=== PATIENT | female | born 1950 | race Caucasian/White ===

== ENCOUNTER 2019-12-03 10:21 | Day surgery (SDC) | payer MEDICARE, BC ==
[~2019-12-03 10:21] MED LIST: Cefuroxime 10 MG/ML SYRINGE EYELF SCH; Lidocaine 1% PF 2 ML SDV INJECT SCH; Pilocarpine 4% Ophth Soln 15 ML Bot EYELF SCH
[2019-12-03] MEDS: Polymyxin B/Trimethoprim 10 ML Bottle EYELF SCH ×3 (10:58→12:53)
[2019-12-03] MEDS: Brimonidine 0.2% Ophth Soln 5 ML Bottle EYELF SCH ×3 (11:03→12:53)
[2019-12-03] MEDS: Phenylephrine 2.5% Ophth Soln 2 ML Bot EYELF SCH ×5 (11:08→12:36)
[2019-12-03] MEDS: Tropicamide 1% Ophth Soln 15 ML Bottle EYELF SCH ×4 (11:13→12:10)
--- NOTE | 2019-12-03 11:50 | PCM.PREANE ---
Preanesthetic Assessment - Procedure Proposed Procedure: cataract left - Anesthesia/Transfusion/Family Hx Anesthesia History: Prior Anesthesia Without Reaction Transfusion History: No Prior Transfusion(s) - Review of Systems General: No Symptoms Pulmonary: No Symptoms Cardiovascular: No Symptoms Gastrointestinal: No Symptoms Neurological: No Symptoms Other: Reports: None, Neck Pain - Physical Assessment NPO Status Date: 12/03/19 NPO Status Time: 03:30 (water) Vital Signs: 110/60 67 98% 16 97 Height: 5 ft 2 in Weight: 54.431 kg ASA Class: 2 Mental Status: Alert & Oriented x3 Airway Class: Mallampati = 1 Dentition: Reports: Normal Dentition Thyro-Mental Finger Breadths: 3 Mouth Opening Finger Breadths: 3 ROM/Head Extension: Full Lungs: Clear to Auscultation, Normal Respiratory Effort Cardiovascular: Regular Rate, Regular Rhythm - Allergies Allergies/Adverse Reactions: Allergies Allergy/AdvReac Type Severity Reaction Status Date / Time latex Allergy Rash Verified 12/02/19 13:55 - Blood Blood Available: No - Acknowledgements Anesthesia Type Planned: MAC Pt an Appropriate Candidate for the Planned Anesthesia: Yes Alternatives and Risks of Anesthesia Discussed w Pt/Guardian: Yes Pt/Guardian Understands and Agrees with Anesthesia Plan: Yes PreAnesthesia Questionnaire Cardiovascular History: Reports: High Cholesterol, Hypertension Respiratory History: Reports: None - SUBSTANCE USE Smoking Status *Q: Former Smoker Tobacco Use Within Last Twelve Months: No Second Hand Smoke Exposure: No Recreational Drug Use History: No - HOME MEDS Home Medications: Home Meds Calcium Carbonate [Calcium] 500 mg PO DAILY 12/02/19 [History] Cholecalciferol (Vitamin D3) [Vitamin D3] 400 unit PO DAILY 12/02/19 [History] Echinacea Purpurea Extract [Echinacea] 125 mg PO DAILY 12/02/19 [History] Garlic [Odorless Garlic] 300 mg PO DAILY 12/02/19 [History] Glucosamine [Glucosamine Sulfate] 500 mg PO DAILY 12/02/19 [History] Lactobacillus Acidophilus [Probiotic] 1 cap PO DAILY 12/02/19 [History] Propylene Glycol/Peg 400 [Systane 0.3-0.4% Eye Drops] 1 drop EYEBOTH Q4H PRN [History] Turmeric/Turmeric Root Extract [Turmeric] 500 mg PO DAILY 12/02/19 [History] Vitc/E/Zn/Copper/Lutein/Zeaxan [Icaps Areds2 Softgel] 1 cap PO DAILY 12/02/19 [ History] cycloSPORINE [Restasis] 1 drop EYEBOTH BID 12/02/19 [History] - CURRENT (IN HOUSE) MEDS Current Meds: Current Medications Brimonidine Tartrate (Alphagan 0.2% Ophth Soln) 0 ml EYELF ASDIRECTED ERON Stop: 12/03/19 23:00 Last Admin: 12/03/19 11:03 Dose: 1 drop Cefuroxime Sodium (Zinacef) 0 mg EYELF ASDIRECTED ERON Stop: 12/03/19 23:00 Lidocaine HCl (Xylocaine-Mpf 1%) 0 ml INJECT ASDIRECTED ERON Stop: 12/03/19 23:00 Phenylephrine HCl (Alessandro-Synephrine 2.5% Ophth Soln) 0 ml EYELF ASDIRECTED ERON Stop: 12/03/19 23:00 Last Admin: 12/03/19 11:27 Dose: 1 drop Pilocarpine HCl (Pilocar 4% Ophth Soln) 0 ml EYELF ASDIRECTED ERON Stop: 12/03/19 23:00 Polymyxin/Trimethoprim Sulfate (Polytrim Ophth Soln) 0 ml EYELF ASDIRECTED ERON Stop: 12/03/19 23:00 Last Admin: 12/03/19 11:40 Dose: 1 drop Tetracaine HCl (Tetracaine 0.5% Steri-Unit Viri) 0 ml EYELF ASDIRECTED ERON Stop: 12/03/19 23:00 Tropicamide (Mydriacyl 1% Ophth Soln) 0 ml EYELF ASDIRECTED ERON Stop: 12/03/19 23:00 Last Admin: 12/03/19 11:32 Dose: 1 drop
[2019-12-03] MEDS: Tetracaine HCl/PF 0.5% 4 ML Bottle EYELF SCH ×2 (12:20→12:43)
--- NOTE | 2019-12-03 13:37 | PCM48HPAN ---
Post Anesthesia Note - EVALUATION WITHIN 48HRS OF ANESTHETIC Vital Signs in Normal Range: Yes Patient Participated in Evaluation: Yes Respiratory Function Stable: Yes Airway Patent: Yes Cardiovascular Function Stable: Yes Hydration Status Stable: Yes Pain Control Satisfactory: Yes Nausea and Vomiting Control Satisfactory: Yes Mental Status Recovered: Yes Vital Signs: Last Vital Signs Temp 36.3 C 12/03/19 12:57 Pulse 70 12/03/19 12:57 Resp 16 12/03/19 12:57 BP 104/65 12/03/19 12:57 Pulse Ox 99 12/03/19 12:57
== END 2019-12-03 13:05 | disposition home or self-care (01) ==
LOC: JD.SDS 10:21
PROVIDERS: ATTEND Ophthalmology
DX: H25.813 Combined forms of age-related cataract, bilateral (principal); H35.363 Drusen (degenerative) of macula, bilateral; H35.3131 Nonexudative age-related macular degeneration, bilateral, early dry stage; H16.103 Unspecified superficial keratitis, bilateral; H16.223 Keratoconjunctivitis sicca, not specified as Sjogren's, bilateral; H02.834 Dermatochalasis of left upper eyelid; H02.831 Dermatochalasis of right upper eyelid; E78.00 Pure hypercholesterolemia, unspecified; Z91.040 Latex allergy status
CPT/HCPCS: 66984; J0697; J2001; C1780

== ENCOUNTER 2019-12-29 07:08 | Day surgery (SDC) | payer MEDICARE, BC ==
[2019-12-29] MEDS: Polymyxin B/Trimethoprim 10 ML Bottle EYERT SCH ×4 (07:24→08:49)
[2019-12-29] MEDS: Brimonidine 0.2% Ophth Soln 5 ML Bottle EYERT SCH ×4 (07:28→08:49)
[2019-12-29] MEDS: Phenylephrine 2.5% Ophth Soln 2 ML Bot EYERT SCH ×6 (07:34→08:22)
[2019-12-29] MEDS: Tropicamide 1% Ophth Soln 15 ML Bottle EYERT SCH ×4 (07:38→08:03)
--- NOTE | 2019-12-29 07:44 | PCM.PREANE ---
Preanesthetic Assessment - Anesthesia/Transfusion/Family Hx Anesthesia History: Prior Anesthesia Without Reaction Family History of Anesthesia Reaction: No Transfusion History: No Prior Transfusion(s) Intubation History: Unknown - Review of Systems General: No Symptoms Pulmonary: No Symptoms (quit smoking 2006) Cardiovascular: No Symptoms (elevated cholesterol) Gastrointestinal: No Symptoms Neurological: No Symptoms, Headache Other: Reports: None - Physical Assessment NPO Status Date: 12/28/19 NPO Status Time: 23:59 Vital Signs: HR: 66 BP: 120/67 Resp: 16 Temp: 97.1 Sat: 97% Height: 1.57 m Weight: 54.431 kg ASA Class: 2 Mental Status: Alert & Oriented x3 Airway Class: Mallampati = 2 Dentition: Reports: Normal Dentition, Caries Thyro-Mental Finger Breadths: 3 Mouth Opening Finger Breadths: 3 ROM/Head Extension: Full Lungs: Clear to Auscultation, Normal Respiratory Effort Cardiovascular: Regular Rate, Regular Rhythm, No Murmurs - Allergies Allergies/Adverse Reactions: Allergies Allergy/AdvReac Type Severity Reaction Status Date / Time latex Allergy Rash Verified 12/28/19 11:39 - Anesthesia Plan Pre-Op Medication Ordered: None - Acknowledgements Anesthesia Type Planned: MAC Pt an Appropriate Candidate for the Planned Anesthesia: Yes Alternatives and Risks of Anesthesia Discussed w Pt/Guardian: Yes Pt/Guardian Understands and Agrees with Anesthesia Plan: Yes PreAnesthesia Questionnaire Cardiovascular History: Reports: High Cholesterol, Hypertension Respiratory History: Reports: None - HOME MEDS Home Medications: Home Meds Calcium Carbonate [Calcium] 500 mg PO DAILY 12/02/19 [History] Cholecalciferol (Vitamin D3) [Vitamin D3] 400 unit PO DAILY 12/02/19 [History] Echinacea Purpurea Extract [Echinacea] 125 mg PO DAILY 12/02/19 [History] Garlic [Odorless Garlic] 300 mg PO DAILY 12/02/19 [History] Glucosamine [Glucosamine Sulfate] 500 mg PO DAILY 12/02/19 [History] Lactobacillus Acidophilus [Probiotic] 1 cap PO DAILY 12/02/19 [History] Propylene Glycol/Peg 400 [Systane 0.3-0.4% Eye Drops] 1 drop EYEBOTH Q4H PRN [History] Turmeric/Turmeric Root Extract [Turmeric] 500 mg PO DAILY 12/02/19 [History] Vitc/E/Zn/Copper/Lutein/Zeaxan [Icaps Areds2 Softgel] 1 cap PO DAILY 12/02/19 [ History] cycloSPORINE [Restasis] 1 drop EYEBOTH BID 12/02/19 [History] - CURRENT (IN HOUSE) MEDS Current Meds: Current Medications Brimonidine Tartrate (Alphagan 0.2% Ophth Soln) 0 ml EYERT ASDIRECTED ERON Stop: 12/29/19 18:00 Last Admin: 12/29/19 07:28 Dose: 1 drop Cefuroxime Sodium (Zinacef) 0 mg EYERT ASDIRECTED ERON Stop: 12/29/19 18:00 Lidocaine HCl (Xylocaine-Mpf 1%) 0 ml INJECT ASDIRECTED ERON Stop: 12/29/19 18:00 Phenylephrine HCl (Alessandro-Synephrine 2.5% Ophth Soln) 0 ml EYERT ASDIRECTED ERON Stop: 12/29/19 18:00 Last Admin: 12/29/19 07:34 Dose: 1 drop Pilocarpine HCl (Pilocar 4% Ophth Soln) 0 ml EYERT ASDIRECTED ERNO Stop: 12/29/19 18:00 Polymyxin/Trimethoprim Sulfate (Polytrim Ophth Soln) 0 ml EYERT ASDIRECTED ERON Stop: 12/29/19 18:00 Last Admin: 12/29/19 07:24 Dose: 1 drop Tetracaine HCl (Tetracaine 0.5% Steri-Unit Viri) 0 ml EYEBOTH ASDIRECTED ERON Stop: 12/29/19 18:00 Tropicamide (Mydriacyl 1% Ophth Soln) 0 ml EYERT ASDIRECTED ERON Stop: 12/29/19 18:00 Last Admin: 12/29/19 07:38 Dose: 1 drop
[2019-12-29] MEDS: Tetracaine HCl/PF 0.5% 4 ML Bottle EYEBOTH SCH ×3 (07:47→08:35)
[2019-12-29] MEDS: Lidocaine 1% PF 2 ML SDV INJECT SCH ×2 (07:47→08:35)
[2019-12-29] MEDS: Pilocarpine 4% Ophth Soln 15 ML Bot EYERT SCH ×2 (07:48→08:49)
[2019-12-29] MEDS: Cefuroxime 10 MG/ML SYRINGE EYERT SCH ×2 (07:48→08:48)
--- NOTE | 2019-12-29 08:50 | PCM48HPAN ---
Post Anesthesia Note - EVALUATION WITHIN 48HRS OF ANESTHETIC Vital Signs in Normal Range: Yes Patient Participated in Evaluation: Yes Respiratory Function Stable: Yes Airway Patent: Yes Cardiovascular Function Stable: Yes Hydration Status Stable: Yes Pain Control Satisfactory: Yes Nausea and Vomiting Control Satisfactory: Yes Mental Status Recovered: Yes Vital Signs: Last Vital Signs Temp 36.2 C 12/29/19 07:15 Pulse 66 12/29/19 07:15 Resp 16 12/29/19 07:15 BP 120/67 12/29/19 07:15 Pulse Ox 97 12/29/19 07:15
== END 2019-12-29 08:59 | disposition home or self-care (01) ==
LOC: JD.SDS 07:08
PROVIDERS: ATTEND Ophthalmology
DX: H25.811 Combined forms of age-related cataract, right eye (principal); E78.00 Pure hypercholesterolemia, unspecified; H02.831 Dermatochalasis of right upper eyelid; H02.834 Dermatochalasis of left upper eyelid; H35.3131 Nonexudative age-related macular degeneration, bilateral, early dry stage; H35.363 Drusen (degenerative) of macula, bilateral; H40.1334 Pigmentary glaucoma, bilateral, indeterminate stage; Z91.040 Latex allergy status; Z96.1 Presence of intraocular lens; Z98.42 Cataract extraction status, left eye
CPT/HCPCS: 66984; C1780; J0697; J2001

== ENCOUNTER 2021-04-06 07:08 | Day surgery (SDC) | payer MEDICARE, BC ==
[~2021-04-06 07:08] MED LIST changes: +Acetaminophen 325 MG Tab PO SCH; -Cefuroxime 10 MG/ML SYRINGE EYELF SCH; +Gabapentin 300 MG Cap PO SCH; +Lactated Ringers 1,000 ML IV SCH; +Lidocaine 1% 4 ML ONE; -Lidocaine 1% PF 2 ML SDV INJECT SCH; +Lidocaine 1%/Sod Bicarbonate in NS 8.4% 1 ML Syringe IDERM PRN; -Pilocarpine 4% Ophth Soln 15 ML Bot EYELF SCH; +Propofol 200 MG/20 ML SDV ONE; +Rocuronium 50 MG/5 ML Vial ONE; +Sodium Chloride 0.9% 10 ML Syringe FLUSH PRN; +ceFAZolin 1 GM Vial ONE; +fentaNYL 250 MCG/5 ML SDV ONE
[2021-04-06] MEDS ORDERED: Lidocaine 1% with EPINEPHrine 1:100,000 10 ML MDV ONE (07:17)
[2021-04-06] MEDS ORDERED: Bupivacaine 0.5%/EPINEPHrine 1:200,000 50 ML MDV ONE (07:17)
--- NOTE | 2021-04-06 07:22 | PCM.PREANE ---
Preanesthetic Assessment - Anesthesia/Transfusion/Family Hx Anesthesia History: Prior Anesthesia Without Reaction Family History of Anesthesia Reaction: No Transfusion History: No Prior Transfusion(s) Intubation History: Unknown - Review of Systems General: No Symptoms Pulmonary: No Symptoms Cardiovascular: No Symptoms Gastrointestinal: No Symptoms Neurological: No Symptoms Other: Reports: None - Physical Assessment NPO Status Date: 04/05/21 NPO Status Time: 23:30 ASA Class: 2 Mental Status: Alert & Oriented x3 Airway Class: Mallampati = 1 Dentition: Reports: Normal Dentition Thyro-Mental Finger Breadths: 3 Mouth Opening Finger Breadths: 3 ROM/Head Extension: Full Lungs: Clear to Auscultation, Normal Respiratory Effort Cardiovascular: Regular Rate, Regular Rhythm - Allergies Allergies/Adverse Reactions: Allergies Allergy/AdvReac Type Severity Reaction Status Date / Time No Known Allergies Allergy Verified 04/05/21 13:04 - Acknowledgements Anesthesia Type Planned: General Anesthesia Pt an Appropriate Candidate for the Planned Anesthesia: Yes Alternatives and Risks of Anesthesia Discussed w Pt/Guardian: Yes Pt/Guardian Understands and Agrees with Anesthesia Plan: Yes PreAnesthesia Questionnaire HEENT History: Reports: Impaired Vision Cardiovascular History: Reports: High Cholesterol, Hypertension Respiratory History: Reports: None Gastrointestinal History: Reports: None Genitourinary History: Reports: None 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 Other Musculoskeletal History: broken wrist, no surgery indicated Neurological History: Reports: None Psychiatric History: Reports: None Endocrine/Metabolic History: Reports: None Hematologic History: Reports: None Immunologic History: Reports: None Oncologic (Cancer) History: Reports: None Dermatologic History: Reports: None - Past Surgical History Head Surgeries/Procedures: Reports: None HEENT Surgical History: Reports: Cataract Surgery Cardiovascular Surgical History: Reports: None Respiratory Surgical History: Reports: None GI Surgical History: Reports: Colonoscopy Female Surgical History: Reports: Tubal Ligation Male Surgical History: Reports: None Endocrine Surgical History: Reports: None Neurological Surgical History: Reports: None Musculoskeletal Surgical History: Reports: None Oncologic Surgical History: Reports: None Dermatological Surgical History: Reports: None - SUBSTANCE USE Tobacco Use Status *Q: Former Tobacco User Recreational Drug Use History: No - HOME MEDS Home Medications: Home Meds Calcium Carbonate [Calcium] 500 mg PO DAILY 12/02/19 [History] Cholecalciferol (Vitamin D3) [Vitamin D3] 400 unit PO DAILY 12/02/19 [History] Echinacea Purpurea Extract [Echinacea] 125 mg PO DAILY 12/02/19 [History] Garlic [Odorless Garlic] 300 mg PO DAILY 12/02/19 [History] Glucosamine [Glucosamine Sulfate] 500 mg PO DAILY 12/02/19 [History] Lactobacillus Acidophilus [Probiotic] 1 cap PO DAILY 12/02/19 [History] Turmeric/Turmeric Root Extract [Turmeric] 500 mg PO DAILY 12/02/19 [History] cycloSPORINE [Restasis] 1 drop EYEBOTH BID 12/02/19 [History] C/Sourcherry/Celery/Grape Seed [Tart Vega] 1 cap PO DAILY 04/05/21 [History] Clioquinol/Hydrocortisone [Ala-Taryn 3-0.5%] 1 dose TOP BID PRN 04/05/21 [History] Cranberry Fruit Extract [Cranberry] 200 mg PO DAILY 04/05/21 [History] Fish Oil/[place]-3 Fatty Acids [Fish Oil 1,000 MG] 1 gm PO DAILY 04/05/21 [History] - CURRENT (IN HOUSE) MEDS Current Meds: Current Medications Acetaminophen (Acetaminophen 325 Mg Tab) 975 mg PO ONETIME ERON Stop: 04/06/21 18:00 Gabapentin (Gabapentin 300 Mg Cap) 300 mg PO ONETIME ERON Stop: 04/06/21 18:00 Lactated Ringer's (Ringers, Lactated) 1,000 mls @ 125 mls/hr IV ASDIRECTED ERON Stop: 04/06/21 23:00 Lidocaine/Sodium Bicarbonate (Lidocaine 1%/Sod Bicarbonate In Ns 8.4% 1 Ml Syringe) 0.25 ml IDERM ONETIME PRN PRN Reason: Prior to IV Start Stop: 04/06/21 23:00 Sodium Chloride (Sodium Chloride 0.9% 10 Ml Syringe) 10 ml FLUSH ASDIRECTED PRN PRN Reason: Keep Vein Open Stop: 04/06/21 18:00 Discontinued Medications Cefazolin Sodium (Cefazolin 1 Gm Vial) Confirm Administered Dose 2 gm .ROUTE .STK-MED ONE Stop: 04/06/21 06:58 Fentanyl (Fentanyl 250 Mcg/5 Ml Sdv) Confirm Administered Dose 250 mcg .ROUTE .STK-MED ONE Stop: 04/06/21 06:59 Lidocaine HCl (Xylocaine-Mpf 1%) Confirm Administered Dose 4 mls @ as directed .ROUTE .STK-MED ONE Stop: 04/06/21 06:58 Propofol (Propofol 200 Mg/20 Ml Sdv) Confirm Administered Dose 200 mg .ROUTE .STK-MED ONE Stop: 04/06/21 06:58 Rocuronium Jackson (Rocuronium 50 Mg/5 Ml Vial) Confirm Administered Dose 50 mg .ROUTE .STK-MED ONE Stop: 04/06/21 06:58
[2021-04-06] MEDS ORDERED: HYDROmorphone 0.5 MG/0.5 ML Syringe ONE (08:29)
[2021-04-06] MEDS ORDERED: Ondansetron 4 MG/2 ML SDV IVPUSH PRN (08:39)
[2021-04-06] MEDS ORDERED: fentaNYL 100 MCG/2 ML SDV IVPUSH PRN (08:39)
[2021-04-06] MEDS ORDERED: HYDROmorphone 0.5 MG/0.5 ML Syringe IVPUSH PRN (08:39)
[2021-04-06] MEDS ORDERED: Lactated Ringers 1,000 ML ONE (08:51)
[2021-04-06] MEDS ORDERED: Ondansetron 4 MG/2 ML SDV ONE (08:59)
[2021-04-06] MEDS ORDERED: Ketorolac 30 MG/ML SDV ONE (08:59)
--- NOTE | 2021-04-06 09:21 | PCM.PRNOTE ---
- Free Text/Narrative Note: OPERATIVE REPORT Date of Surgery/Procedure: April 06, 2021 Operative Procedure(s): laparoscopic cholecystectomy Findings: 1. Gallbladder with surrounding scarring and otherwise normal anatomy, filmy adhesions to surrounding omentum 2. Gallbladder hydrops Pre Op Diagnosis: Symptomatic cholelithiasis Post-Op Diagnosis: Same Anesthesia Technique: General ET Tube Primary Surgeon: Marguerite Sol MD Anesthesia Provider: Bambi Petty CRNA Pathology: Gallbladder with contents Fluid Replacement, Intraop: See anesthesia record Output, Urine Amount: None EBL: 5cc Drain/Tube Comments: None Indication for the procedure: The patient is a 70-year-old lady who presented to my office with findings consistent with symptomatic cholelithiasis. The patient was counseled for laparoscopic cholecystectomy, with possible conversion to open. After discussion of the risks of infection, bleeding and injury to the bi le duct as well as increased complication from previous intra-abdominal surgery, the patient's consent was obtained. Description of the procedure: The patient presented to the outpatient holding area on the day of the procedure. The history and physical were verified and consent was present and on the chart. The patient was taken back to the operating room and placed in supine position on the operating table. SCD boots were placed and functional prior to the start of the procedure. Preoperative antibiotics were administered according to SCIP protocol, Ancef 2g IV. A surgical timeout was performed. The patient then had induction of general anesthesia and was intubated without difficulty. The patient was prepped and draped in standard surgical fashion. We began by making an infraumbilical vertical incision and deepened this down through subcutaneous fat to the level of the fascia. This was grasped and incised. We bluntly entered through the peritoneum and a finger sweep was done. A stay suture of 0 Vicryl was placed in the fascia. The 12 mm balloon Santiago port was then inserted into the abdomen and the balloon inflated. Insufflation was attached and we had appropriate opening pressures. The abdomen was then insufflated to 15 mmHg. We inserted a scope into the abdomen and inspected the area where we had entered. There was no evidence of injury to surrounding structures with no evidence of bile or bleeding. A TAP block was then performed using 1% lidocaine with epinephrine mixed with 0.5% bupivacaine with epinephrine. The patient was then positioned with head up and right side up to facilitate exposure of the gallbladder. We then proceeded with placing our additional ports. A 5mm port was placed in the epigastric region. Two additional 5mm ports placed under direct visualization in the right upper quadrant. Once we had sufficiently exposed the dome of the gallbladder. This was grasped and retracted cephalad. We proceeded with our dissection to expose the cystic duct and cystic artery. We did have a critical view. The cystic duct and artery were then clipped and cut using endoscopic scissors. We then proceeded to fully dissect the gallbladder off of the cystic plate using the Bovie device. The gallbladder was then placed in the Endo Catch bag and withdrawn towards the umbilical port. We then inspected the area of the dissection. There was no significant bleeding and hemostasis was achieved. We then inspected the port sites and desufflated the abdomen. The ports were then removed. The gallbladder was withdrawn through the umbilical port site. During withdrawal, some clear fluid started from the gallbladder to the outside abdominal skin, consistent with gallbladder hydrops. We then proceeded to close the umbilical port site using an 0 Vicryl stitch. We had good closure of the fascia. A superficial 4-0 monocryl suture was used to approximate the skin. The skin was covered with Dermabond surgical glue. The patient tolerated the procedure well and was extubated without difficulty. She was transported to the PACU in stable condition. All sponge, needle counts correct. I was scrubbed and actively participated in the entire procedure. No immediate complications noted. Complications: None apparent Condition: Good Marguerite Sol MD General Surgery
--- NOTE | 2021-04-06 09:21 | PCM.OPNOTE ---
- General Post-Op/Procedure Note Date of Surgery/Procedure: 04/06/21 Operative Procedure(s): laparoscopic cholecystectomy Findings: normal gallbladder anatomy with filmy adhesons to omentum and surrounding scarring Pre Op Diagnosis: symptomatic cholelithiasis Post-Op Diagnosis: same Anesthesia Technique: General ET Tube, Local Primary Surgeon: Marguerite Sol Anesthesia Provider: Bambi Petty Pathology: gallbladder with contents Fluid Replacement, Intraop: 1,300 Output, Urine Amount: 0 EBL in mLs: 5 Complications: none apparent Condition: Good
--- NOTE | 2021-04-06 09:31 | PCM.POSTAN ---
POST ANESTHESIA ASSESSMENT - MENTAL STATUS Mental Status: Alert, Oriented - VITAL SIGNS Vital Signs: Last Vital Signs Temp 36.6 C 04/06/21 09:21 Pulse 89 04/06/21 09:21 Resp 16 04/06/21 09:21 BP 142/68 H 04/06/21 09:21 Pulse Ox 96 04/06/21 09:21 - RESPIRATORY Respiratory Status: Respiratory Rate WNL, Airway Patent, O2 Saturation Stable - CARDIOVASCULAR CV Status: Pulse Rate WNL, Blood Pressure Stable - GASTROINTESTINAL GI Status: No Symptoms - PAIN Pain Score: 0
[2021-04-06] MEDS ORDERED: traMADol 50 MG Tab PO ONE (09:58)
--- NOTE | 2021-04-06 10:13 | PCM48HPAN ---
Post Anesthesia Note - EVALUATION WITHIN 48HRS OF ANESTHETIC Vital Signs in Normal Range: Yes Patient Participated in Evaluation: Yes Respiratory Function Stable: Yes Airway Patent: Yes Cardiovascular Function Stable: Yes Hydration Status Stable: Yes Pain Control Satisfactory: Yes Nausea and Vomiting Control Satisfactory: Yes Mental Status Recovered: Yes Vital Signs: Last Vital Signs Temp 36.7 C 04/06/21 10:05 Pulse 74 04/06/21 10:05 Resp 20 04/06/21 10:05 BP 149/88 H 04/06/21 10:05 Pulse Ox 96 04/06/21 10:05
== END 2021-04-06 11:54 | disposition home or self-care (01) ==
LOC: JD.SDS 07:08
PROVIDERS: ATTEND Surgery
DX: K80.10 Calculus of gallbladder with chronic cholecystitis without obstruction (principal); K82.1 Hydrops of gallbladder; F17.210 Nicotine dependence, cigarettes, uncomplicated; E78.00 Pure hypercholesterolemia, unspecified; I10 Essential (primary) hypertension; Z98.890 Other specified postprocedural states; Z91.040 Latex allergy status; Z79.899 Other long term (current) drug therapy
CPT/HCPCS: 47562; 88304; A9270; J0690; J1170; J1885; J2405; J2704; J3010; J3490; J7120; 00790; 99100